=== PATIENT | male | born 1995 | race Caucasian/White ===

== ENCOUNTER 2016-09-22 14:00 | Emergency (ER) | payer OTHER ==
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
[~2016-09-22 14:00] MED LIST: ILOTYCIN1 G1 OP; LORTAB 5/500 TA1 TA1 PO; NO MEDICATIONS; ORUDIS75 M1 PO; VOLTAREN75 MG PO
== END 2016-09-22 14:45 | disposition home or self-care (01) ==
LOC: SED 14:00
DX: S39.012A Strain of muscle, fascia and tendon of lower back, initial encounter (principal); V49.40XA Driver injured in collision with unspecified motor vehicles in traffic accident, initial encounter; Y93.89 Activity, other specified; Y92.410 Unspecified street and highway as the place of occurrence of the external cause
CPT/HCPCS: 72100; 99283

== ENCOUNTER 2016-10-29 21:16 | Emergency (ER) | payer OTHER ==
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
== END 2016-10-29 22:20 | disposition home or self-care (01) ==
LOC: SED 21:16
DX: S06.0X9A Concussion with loss of consciousness of unspecified duration, initial encounter (principal); G43.909 Migraine, unspecified, not intractable, without status migrainosus; G47.33 Obstructive sleep apnea (adult) (pediatric); Z87.891 Personal history of nicotine dependence; W22.8XXA Striking against or struck by other objects, initial encounter; Z90.89 Acquired absence of other organs
CPT/HCPCS: 70450; 96372; 99284; J1885